=== PATIENT | female | born 1970 | race Caucasian/White ===

== ENCOUNTER 2019-06-10 10:51 | Emergency (ER) | payer BC, OTHER ==
[~2019-06-10] VITALS: Ht 160 cm; Wt 97.4 kg
[2019-06-10] MEDS ORDERED: NITROGLYCERIN 2% OINT 1 GM UNIT DOSE PACKET TOP STA (11:17)
--- NOTE | 2019-06-10 11:24 | ED General ---
General Chief Complaint: Chest Pain Stated Complaint: CHEST PAIN Source of Information: Patient History of Present Illness Date Seen by Provider: Jun 10, 2019 Time Seen by Provider: 10:52 Initial Comments 48-year-old female with complaints of intermittent chest pain and headaches for over a week now. She does have a history of hypertension and prediabetes. She has not been compliant with follow-up through the clinic or with taking her hypertension medication. She has a strong family history of cardiac disease with her father having sudden cardiac failure and at age of 51 yo as well as multiple family members with heart disease. She has tried taking some ibuprofen for her chest pain and headache with minimal to no relief. She feels like the chest pain does seem to be worse when she is work and stressed. She has not followed up with the clinic about the symptoms. Today she was at work when the symptoms came on and she felt like it was worse so she came to the emergency department. Today symptoms started about 90 minutes prior to arrival and have been constant but have fluctuated in intensity. She also feels short of breath with the symptoms. She had a recent respiratory illness a few weeks ago. She feels like the pain goes into her right shoulder and neck at times as well. She does have some nausea with her symptoms sometimes as well. She denies any change in her bowels or bladder. Allergies and Home Medications Allergies Coded Allergies: Penicillins (Verified Allergy, Unknown, 06/10/19) Home Medications Lisinopril/Hydrochlorothiazide 1 Each Tablet, 1 EACH PO DAILY Prescribed by: RENÉ HIRSCH on 06/10/19 1254 Patient Home Medication List Home Medication List Reviewed: Yes Review of Systems Review of Systems Constitutional: No chills, No dizziness, No fever EENTM: No ear pain, No blurred vision, No double vision, No epistaxis, No nose congestion Respiratory: No cough; short of breath (when she has chest pain) Cardiovascular: see HPI, edema (and intermittent swelling in her legs especially the right ankle but it does improve with elevation of her legs) Gastrointestinal: see HPI; No abdominal pain Genitourinary: see HPI; No dysuria, No pain Musculoskeletal: see HPI; No back pain; joint pain (right shoulder pain at times when she is having chest pain) Skin: no symptoms reported Psychiatric/Neurological: Headache (and generalized headache that has been worsening over the last few weeks as well); Denies Numbness, Denies Paresthesia Hematologic/Lymphatic: Denies Easy Bleeding, Denies Easy Bruising Past [id number] Hx Past Med/Social Hx: Reviewed Nursing Past Med/Soc Hx Patient Social History Recent Foreign Travel: No Past Medical History Respiratory: No Cardiac: Yes Hypertension Neurological: No Reproductive Disorders: No Genitourinary: No Gastrointestinal: Yes Gastroesophageal Reflux Musculoskeletal: No Endocrine: Yes (prediabetic in 2018) HEENT: No Cancer: No Psychosocial: No Integumentary: No Physical Exam Vital Signs Vital Signs - First Documented Capillary Refill : Height, Weight, BMI Height: '" Weight: lbs. oz. kg; BMI Method: General Appearance: No Apparent Distress, WD/WN, Obese HEENT: PERRL/EOMI, Pharynx Normal Neck: Full Range of Motion, Normal Inspection, Non Tender, Supple Respiratory: Chest Non Tender, Lungs Clear, Normal Breath Sounds, No Accessory Muscle Use, No Respiratory Distress Cardiovascular: Regular Rate, Rhythm, No Murmur, Normal Peripheral Pulses Gastrointestinal: Normal Bowel Sounds, No Pulsatile Mass, Non Tender, Soft Rectal: Deferred Extremity: Normal Capillary Refill, Normal Inspection, Non Tender, No Calf Tenderness, No Pedal Edema Neurologic/Psychiatric: Alert, Oriented x3 Skin: Normal Color, Warm/Dry Progress/Results/Core Measures Suspected Sepsis SIRS Temperature: Pulse: Respiratory Rate: Laboratory Tests 06/10/19 11:15: White Blood Count 8.4 Blood Pressure / Mean: Laboratory Tests 06/10/19 11:15: Creatinine 0.80, INR Comment 0.9, Platelet Count 249, Total Bilirubin 0.2 Results/Orders Lab Results Laboratory Tests Test 06/10/19 11:15 06/10/19 11:55 Range/Units White Blood Count 8.4 4.3-11.0 10^3/uL Red Blood Count 5.29 4.35-5.85 10^6/uL Hemoglobin 14.9 11.5-16.0 G/DL Hematocrit 46 35-52 % Mean Corpuscular Volume 86 80-99 FL Mean Corpuscular Hemoglobin 28 25-34 PG Mean Corpuscular Hemoglobin Concent 33 32-36 G/DL Red Cell Distribution Width 13.7 10.0-14.5 % Platelet Count 249 130-400 10^3/uL Mean Platelet Volume 11.6 H 7.4-10.4 FL Neutrophils (%) (Auto) 61 42-75 % Lymphocytes (%) (Auto) 25 12-44 % Monocytes (%) (Auto) 7 0-12 % Eosinophils (%) (Auto) 6 0-10 % Basophils (%) (Auto) 1 0-10 % Neutrophils # (Auto) 5.1 1.8-7.8 X 10^3 Lymphocytes # (Auto) 2.1 1.0-4.0 X 10^3 Monocytes # (Auto) 0.6 0.0-1.0 X 10^3 Eosinophils # (Auto) 0.5 H 0.0-0.3 10^3/uL Basophils # (Auto) 0.1 0.0-0.1 10^3/uL Prothrombin Time 13.0 12.2-14.7 SEC INR Comment 0.9 0.8-1.4 Activated Partial Thromboplast Time 26 24-35 SEC Sodium Level 139 135-145 MMOL/L Potassium Level 3.9 3.6-5.0 MMOL/L Chloride Level 100 98-107 MMOL/L Carbon Dioxide Level 25 21-32 MMOL/L Anion Gap 14 5-14 MMOL/L Blood Urea Nitrogen 10 7-18 MG/DL Creatinine 0.80 0.60-1.30 MG/DL Estimat Glomerular Filtration Rate > 60 BUN/Creatinine Ratio 13 Glucose Level 98 70-105 MG/DL Calcium Level 9.5 8.5-10.1 MG/DL Corrected Calcium 8.5-10.1 MG/DL Magnesium Level 2.5 H 1.6-2.4 MG/DL Total Bilirubin 0.2 0.1-1.0 MG/DL Aspartate Amino Transf (AST/SGOT) 15 5-34 U/L Alanine Aminotransferase (ALT/SGPT) 16 0-55 U/L Alkaline Phosphatase 102 40-136 U/L Troponin I < 0.30 <0.30 NG/ML Pro-B-Type Natriuretic Peptide 119.7 H <75.0 PG/ML Total Protein 8.1 6.4-8.2 GM/DL Albumin 4.6 H 3.2-4.5 GM/DL Lipase 20 8-78 U/L Urine Color YELLOW Urine Clarity CLEAR Urine pH 7.5 5-9 Urine Specific [place] 1.020 1.016-1.022 Urine Protein NEGATIVE NEGATIVE Urine Glucose (UA) NEGATIVE NEGATIVE Urine Ketones NEGATIVE NEGATIVE Urine Nitrite NEGATIVE NEGATIVE Urine Bilirubin NEGATIVE NEGATIVE Urine Urobilinogen 0.2 < = 1.0 MG/DL Urine Leukocyte Esterase NEGATIVE NEGATIVE Urine RBC (Auto) NEGATIVE NEGATIVE Urine RBC RARE /HPF Urine WBC 0-2 /HPF Urine Squamous Epithelial Cells 2-5 /HPF Urine Crystals NONE /LPF Urine Bacteria TRACE /HPF Urine Casts NONE /LPF Urine Mucus SMALL H /LPF Urine Culture Indicated NO My Orders Orders - RENÉ HIRSCH MD Cbc With Automated Diff (06/10/19 11:16) Magnesium (06/10/19 11:16) Chest 1 View Ap/Pa Only (06/10/19 11:16) Ekg Tracing (06/10/19 11:16) Comprehensive Metabolic Panel (06/10/19 11:16) Protime With Inr (06/10/19 11:16) Partial Thromboplastin Time (06/10/19 11:16) O2 (06/10/19 11:16) Monitor-Rhythm Ecg Trace Only (06/10/19 11:16) Aspirin Chewable Tablet (Baby Aspirin Ch (06/10/19 11:30) Ed Iv/Invasive Line Start (06/10/19 11:16) Lipase (06/10/19 11:16) Troponin I Fs (06/10/19 11:16) Probnp Fs (06/10/19 11:16) Nitroglycerin Ointment (Nitrobid Ointme (06/10/19 11:17) Ua Culture If Indicated (06/10/19 11:34) Medications Given in ED Current Medications Medications Dose Ordered Sig/Deven Route Start Time Stop Time Status Last Admin Dose Admin Aspirin 324 mg ONCE ONCE PO 06/10/19 11:30 06/10/19 11:31 DC 06/10/19 11:26 324 MG Vital Signs/I&O 06/10/19 06/10/19 06/10/19 10:54 10:54 13:05 Temp 36.5 36.7 Pulse 78 70 Resp 20 16 B/P (MAP) 168/90 (116) 139/80 (116) Pulse Ox 100 96 O2 Delivery Room Air Room Air Room Air Capillary Refill : Progress Note #1: Time: 11:04 Progress Note Obtain basic labs as well as cardiac enzymes. Obtain chest x-ray and electrocardiogram. Try aspirin as well as nitro paste to see if that would help with her chest pain and blood pressure. Progress Note #2: Time: 11:31 Progress Note Patient reported chest pain had already resolved prior to treatment in the ED. She reported this she came back from the chest x-ray imaging. Nitroglycerin was still applied to help with her blood pressure and while waiting on the testing. Progress Note #3: Time: 12:29 Progress Note Reviewed with patient that her blood work at all looked okay and stable. She had negative cardiac enzymes to indicate any acute MO. Especially considering she had constant pain for over 2 hours as well as intermittent pain for the last few days. Her symptoms were improved with lowering of her blood pressure. Since her symptoms do come on more with stress at work this is likely related back to stress and hypertension. Since she is noncompliant with her medications and follow-up, I stressed to the patient taking the blood pressure medicine every day as well as following up with clinic for monitoring of her blood pressure would be helpful. If she wanted to try and get blood pressure readings at home that would help the primary care provider to monitor her medications and see if adjustment of her dosing was necessary. Will refill her lisinopril/hydrochlor othiazide to give her a chance to follow-up. Also given a note for a couple of days off work so that she could try to get some rest and with the medication start to help with her blood pressure. Also she could try to get established with the clinic greatly set up a follow-up. Counseled on follow-up and return precautions. ECG Initial ECG Impression Date: Jun 10, 2019 Initial ECG Impression Time: 10:56 Initial ECG Rate: 80 Initial ECG Rhythm: Normal Sinus Initial ECG Comparisson: No Previous ECG Available Comment Normal sinus rhythm with a heart rate of 80 bpm. MO interval of 167 ms. QT interval 375 ms QTc interval 433 ms. There is no acute ST elevation. She has flipped T waves in lead III and flattening of the T waves in aVF. She has no prior tracing for comparison. Diagnostic Imaging Diagonstic Imaging: Xray Plain Films/CT/US/NM/MRI: chest Comments NAME: WAYLON MACK [facility] REC#: [id number] PT STATUS: REG ER : 1970 PHYSICIAN: RENÉ HIRSCH MD ADMIT DATE: 06/10/19/ER FS Draft Date of Exam:06/10/19 CHEST 1 VIEW AP/PA ONLY INDICATION: Chest pain. COMPARISON: None available. TECHNIQUE: Single radiograph of the chest dated 06/10/2019. FINDINGS: The cardiac silhouette and pulmonary vasculature are within normal limits. The lungs are clear. No pleural effusion. No pneumothorax. No acute osseous abnormality. IMPRESSION: No acute cardiopulmonary abnormality. Dictated on workstation # [id number] Dict: 06/10/19 1134 Trans: 06/10/19 1138 [id number] Interpreted by: RADHA JOSE MD Electronically signed by: Departure Impression Primary Impression: Essential hypertension Additional Impression: Stress reaction Disposition: HOME, SELF-CARE Condition: Stable Departure-Patient Inst. Decision time for Depature: 12:49 Referrals: ABIGAIL HOBSON MD Patient Instructions: Blood Pressure Testing and Measurement, Checking Your Blood Pressure at Home, DASH Diet, Heart Healthy Diet, High Blood Pressure (DC), Stress Add. Discharge Instructions: Take your blood pressure medicine daily to help control your blood pressure bet ter. This will help with the pains and headaches you are experiencing. Follow up with Dr. Hobson or provider at [facility] for continued concerns and to continue on your blood pressure medicine. You may need to see Cardiology for a stress test or other testing as well due to your family history. Take a Baby aspirin 81 mg daily. Try using a daily pill equipment planner/dispenser to help make it easier for you to take your medicines daily and not forget them. All discharge instructions reviewed with patient and/or family. Voiced understanding. Scripts Lisinopril/Hydrochlorothiazide (Lisinopril-Hctz 20-12.5 mg Tab) 1 Each Tablet 1 EACH PO DAILY for Blood Pressure for 30 Days, #30 TAB 0 Refills Prov: RENÉ HIRSCH MD 06/10/19 Work/School Note: Work Release Form Date Seen in the Emergency Department: Jun 10, 2019 Return to Work: Jun 13, 2019 Restrictions: No Restrictions RENÉ HIRSCH MD Jun 10, 2019 11:24
[2019-06-10 11:25] LABS: HEMOGLOBIN 14.9 G/DL (11.5-16.0); MEAN CORPUSCULAR HEMOGLOBIN 28 PG (25-34); WHITE BLOOD COUNT 8.4 10^3/uL (4.3-11.0)
[2019-06-10 11:26] LABS: BASOPHILS # (AUTO) 0.1 10^3/uL (0.0-0.1); BASOPHILS % (AUTO) 1 % (0-10); EOSINOPHILS # (AUTO) 0.5 10^3/uL (0.0-0.3); EOSINOPHILS % (AUTO) 6 % (0-10); HEMATOCRIT 46 % (35-52); LYMPHOCYTES # (AUTO) 2.1 X 10^3 (1.0-4.0); LYMPHOCYTES % (AUTO) 25 % (12-44); MEAN CORPUSCULAR HGB CONC 33 G/DL (32-36); MEAN CORPUSCULAR VOLUME 86 FL (80-99); MEAN PLATELET VOLUME 11.6 FL (7.4-10.4); MONOCYTES # (AUTO) 0.6 X 10^3 (0.0-1.0); MONOCYTES % (AUTO) 7 % (0-12); NEUTROPHILS # (AUTO) 5.1 X 10^3 (1.8-7.8); NEUTROPHILS % (AUTO) 61 % (42-75); PLATELET COUNT 249 10^3/uL (130-400); RED CELL DISTRIBUTION WIDTH 13.7 % (10.0-14.5)
[2019-06-10] MEDS ORDERED: ASPIRIN 81 MG CHEW (CHILDREN'S ASA) PO ONE (11:30)
[2019-06-10 11:38] LABS: INR 0.9 (0.8-1.4)
--- NOTE | 2019-06-10 11:38 | Diagnostic Imaging Report ---
INDICATION: Chest pain. COMPARISON: None available. TECHNIQUE: Single radiograph of the chest dated 06/10/2019. FINDINGS: The cardiac silhouette and pulmonary vasculature are within normal limits. The lungs are clear. No pleural effusion. No pneumothorax. No acute osseous abnormality. IMPRESSION: No acute cardiopulmonary abnormality. Dictated by: Dictated on workstation # [id number]
[2019-06-10] MEDS ORDERED: LISI1TAB25 (11:49)
[2019-06-10 11:50] LABS: CHLORIDE 100 MMOL/L (98-107); POTASSIUM 3.9 MMOL/L (3.6-5.0); SODIUM 139 MMOL/L (135-145)
[2019-06-10 11:51] LABS: ALANINE AMINOTRANSFERASE 16 U/L (0-55); ALBUMIN 4.6 GM/DL (3.2-4.5); ALKALINE PHOSPHATASE 102 U/L (40-136); BILIRUBIN,TOTAL 0.2 MG/DL (0.1-1.0); BUN/CREATININE RATIO 13; CALCIUM 9.5 MG/DL (8.5-10.1); CARBON DIOXIDE 25 MMOL/L (21-32); GFR ESTIMATED > 60; GLUCOSE 98 MG/DL (70-105); LIPASE 20 U/L (8-78); MAGNESIUM 2.5 MG/DL (1.6-2.4); TOTAL PROTEIN 8.1 GM/DL (6.4-8.2)
[2019-06-10 12:13] LABS: CLARITY,URINE CLEAR; COLOR,URINE YELLOW; PH,URINE 7.5 (5-9)
[2019-06-10 12:14] LABS: BACTERIA,URINE TRACE /HPF; BILIRUBIN,URINE NEGATIVE (NEGATIVE); GLUCOSE, URINE (UA) NEGATIVE (NEGATIVE); KETONES,URINE NEGATIVE (NEGATIVE); LEUKOCYTE ESTERASE ,URINE NEGATIVE (NEGATIVE); NITRITE,URINE NEGATIVE (NEGATIVE); PROTEIN,URINE NEGATIVE (NEGATIVE); RBC,URINE RARE /HPF; WBC,URINE 0-2 /HPF
[2019-06-10] MEDS ORDERED: LISI1TAB25 PO (12:54)
[2019-06-10 13:05] VITALS: BP 139/80
--- NOTE | 2019-06-10 13:05 | NUR ---
Pt reports pain has improved in ED to absent. Reviewed home instructions with patietn and importance of f/u with [facility] provider for renewing her prescriptions and needing to be compliant with medications. Pt is verbalizing understanding of instructions reviewed.
== END 2019-06-10 13:05 | disposition home or self-care (01) ==
LOC: ER FS 10:54
DX: I10 Essential (primary) hypertension (principal); F43.9 Reaction to severe stress, unspecified; K21.9 Gastro-esophageal reflux disease without esophagitis; Z88.0 Allergy status to penicillin
CPT/HCPCS: 36415; 71045; 80053; 81000; 83690; 83735; 83880; 84484; 85025; 85610; 85730; 93005; 93041

== ENCOUNTER → 2020-05-27 | Outpatient (CLI) | payer BC ==
[~2020-05-27] MED LIST: LISI1TAB46; LISI1TAB46 PO
== END ==
LOC: RAD 15:25
PROVIDERS: ATTEND Family Medicine
DX: M51.34 Other intervertebral disc degeneration, thoracic region (principal); M50.30 Other cervical disc degeneration, unspecified cervical region; Z53.8 Procedure and treatment not carried out for other reasons